=== PATIENT | male | born 1960 | race Caucasian/White ===

== ENCOUNTER 2016-03-25 06:27 | Inpatient (IN) | payer OTHER ==
[2016-03-25 06:55] VITALS: BMI 35.4
[2016-03-25] MEDS ORDERED: LABETALOL 20 MG/4 ML SYRINGE IV STA (06:56)
[2016-03-25] MEDS ORDERED: MORPHINE 4 MG/ML INJECTION IV ONE ×3 (06:56→11:43)
[2016-03-25] MEDS ORDERED: NS 1,000 ML IV ONE ×2 (06:56→09:14)
[2016-03-25] MEDS ORDERED: PROMETHAZINE 25 MG/ML VIAL IV STA (06:56)
[2016-03-25] MEDS ORDERED: SODIUM CHLORIDE 0.9% 3 ML FLUSH FLUSH PRN (06:56)
--- NOTE | 2016-03-25 06:59 | EDPRACDOC ---
[id number] Time Seen by Provider: 03/25/16 06:50 Information Source: Patient, Family Mode Of Arrival: Car Home Medications: Home Medications Cabozantinib S-Malate [Cabometyx] 20 mg PO DAILY 03/25/16 Cholecalciferol (Vitamin D3) [Vitamin D3] 5,000 unit PO TID 03/25/16 Cyclobenzaprine HCl [Flexeril] 10 mg PO TID PRN 03/25/16 Ferrous Sulfate [Feosol] 325 mg PO TID 03/25/16 Furosemide [Lasix] 20 mg PO DAILY 03/25/16 Gabapentin [Neurontin] 600 mg PO TID 03/25/16 Insulin Regular, Human [Novolin R] 0 unit SQ .SSI 03/25/16 Irbesartan [Avapro] 150 mg PO DAILY 03/25/16 Levothyroxine Sodium [Synthroid] 175 mcg PO DAILY 03/25/16 Lorazepam [Ativan] 2 mg PO HS 03/25/16 Magnesium Oxide [Magox] 400 mg PO BID 03/25/16 Morphine Sulfate [Ms Contin] 15 mg PO TID PRN 03/25/16 Mv,Minerals/FA/Lycopene/Ginkgo [One Daily For Men 50+ Adv Tab] 1 each PO DAILY 03/25/16 NPH, Human Insulin Isophane [Novolin N] 50 unit SQ BID 03/25/16 Omeprazole [Prilosec] 20 mg PO DAILY 03/25/16 Ondansetron [Zofran Odt] 4 mg PO Q6H PRN 03/25/16 Oxycodone HCl [Oxycodone Immediate Release] 10 mg PO Q6H PRN 03/25/16 Quetiapine Fumarate [Seroquel] 25 mg PO HS 03/25/16 Ranitidine HCl [Zantac] 150 mg PO BID 03/25/16 Ropinirole HCl [Requip] 1 mg PO QID 03/25/16 Testosterone Cypionate [Testone Cik] 300 mg IM .[id number] 03/25/16 Zolpidem Tartrate [Ambien Cr] 6.25 mg PO HS 03/25/16 Allergies/Adverse Reactions: Allergies Allergy/AdvReac Type Severity Reaction Status Date / Time hydromorphone [From Dilaudid] Allergy See Verified 03/25/16 06:56 Comments Penicillins Allergy Rash-Genera Verified 03/25/16 06:56 lized shrimp Allergy Hives* Verified 03/25/16 06:56 - History of Present Illness Onset: 2100 HPI: PT PRESENTS WITH NAUSEA, VOMITING, AND DIARRHEA THAT BEGAN LAST NIGHT. HE HAS AN ACCOMPANYING HEADACHE AND ELEVATED BLOOD PRESSURE. AT BEDSIDE SAYS THAT ANYTIME HE IS VOMITING HIS BLOOD PRESSURE ELEVATES MARKEDLY. Duration: Reports: Continuous Pain Severity: None Associated Signs and Symptoms: Reports: Nausea, Vomiting, Diarrhea. 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 (Medication/ Zofran ODT 8mg at 0530 Dose/Time) ED Past Medical History - History Reviewed Yes Nurses notes reviewed and agree except as marked - Patient Medical History Cardiac History: Reports: Hypertension GI/ History: Reports: Gastroesophageal Reflux Psychological History: Denies: Depression Systemic History: Reports: Cancer (primary kidney with mets to liver, pancreas, lung, bone) - Social Medical History Smoking Status: Never smoker Lives With: Spouse Lives In: Home EDM Review of Systems - Review of Systems ROS Negative Except as Marked: Yes All systems reviewed and were negative except as marked Constitutional: Fatigue. negative: Fever Respiratory: negative: Shortness of Breath Cardiovascular: negative: Chest Pain Gastrointestinal: Diarrhea, Nausea, Pain, Vomiting. negative: Constipation Genitourinary: negative: Dysuria - Physical Exam Constitutional: Alert Oriented to: Time, Person, Place Last recorded Vital Signs: Last Vital Signs Temp 97.9 F 03/25/16 06:45 Pulse 85 03/25/16 06:45 Resp 24 03/25/16 06:45 BP 226/109 H 03/25/16 06:45 Pulse Ox 96 03/25/16 06:45 Oxygen Pulse Oxygen Saturation 96 O2 Device Room Air Oxygen Flow Rate Fraction of Inspired Oxygen ( FIO2) - HEENT Head: negative: Deformity, Laceration Eye Exam: negative: Edema Oropharynx: Membranes Dry (TACKY) Nose: negative: Congestion, Discharge Neck: negative: Limited ROM - Respiratory/Cardiovascular Respiratory: Normal - CTA. negative: Accessory Muscle Use, Diminished, Tachypnea Cardiovascular: negative: Bradycardia, Tachycardia, Irregular - GI Auscultation: Normal Palpation: Normal Tenderness: Non tender - Musculoskeletal Extremities: Radial Pulse (PALPABLE) - Integumentary Skin: Warm, Dry. negative: Rash - Neurologic Memory Impaired: Normal Motor Function: Normal Mood Description: Anxious, Appropriate Thought: Coherent Perception: Normal - Re-evaluation Re-evaluation 1 Re-evaluation Time: 08:24 PT FEELING BETTER. ASLEEP ON RECHECK. - Results 03/25/16 07:05 03/25/16 07:05 - EKG EKG #1 EKG Time: 07:18 -: Yes EKG interpreted by me Rate: bpm: 87 [place]: LAD Rhythm: NSR Block: RBBB, IVCD ST: Nonsp ED Critical Care Note - Critical Care Note Total Time (mins): 20 Comments: Due to the presence of and / or the risk of deterioration, my attendance to this patient required critical care time, including assessment/reassessment, documentation, ordering and interpreting ancillary studies, discussion with ED staff and consultants,patient and family, and excludes time spent on separately billable procedures. - Departure Yes I personally saw and evaluated the patient. Disposition: Admit IP To This Hospital Condition: Critical Final Diagnosis: Nausea and vomiting, Hypertensive emergency, NSTEMI (non-ST elevated myocardial infarction) Decision to Admit Time: 11:30 Decision to admit date: 03/26/16 Decision to admit: from ED
[2016-03-25 07:41] LABS: MPV 7.8 fL (7.4-10.4)
[2016-03-25 07:42] LABS: BLOOD UREA NITROGEN 24 MG/DL (9-20); CALCIUM 10.2 MG/DL (8.4-10.2); CALCULATED OSMOLALITY 282 MOs/Kg (270-290); CHLORIDE 99 mEq/L (98-107); GLUCOSE 216 MG/DL (70-99); SODIUM LEVEL 141 mEq/L (137-146); TOTAL PROTEIN 7.3 G/DL (6.3-8.2)
[2016-03-25 07:46] LABS: PARTIAL THROMB. TIME 25.7 SEC (22-35)
[2016-03-25 08:03] LABS: SEG NEUTROPHIL 72 % (45-76); TOTAL CELL COUNT 100
[2016-03-25] MEDS ORDERED: hydrALAZINE 20 MG/ML VIAL IV ONE (08:53)
[2016-03-25 09:00] LABS: LEUKOCYTES/URINE NEG (NEGATIVE); NITRITE/URINE NEG (NEGATIVE); RBC/URINE 0-2 (0-2); URINE OCCULT BLOOD NEG (NEG/TRACE); WBC/URINE 0-2 (0-2)
[2016-03-25] MEDS ORDERED: Nitroglycerin D5W 50,000 MCG/250 ML IVBOT IV SCH (10:52)
--- NOTE | 2016-03-25 11:03 | DIRPT ---
CLINICAL DATA: Headache. Hypertension. Nausea and vomiting for 1 day. History of left renal cancer with metastatic disease, ongoing therapy. EXAM: CT HEAD WITHOUT CONTRAST TECHNIQUE: Contiguous axial images were obtained from the base of the skull through the vertex without intravenous contrast. COMPARISON: None. FINDINGS: The brainstem, cerebellum, cerebral peduncles, thalami, basal ganglia, basilar cisterns, and ventricular system appear within normal limits. No intracranial hemorrhage, mass lesion, or acute CVA. No discrete calvarial metastatic lesion is identified. IMPRESSION: 1. No significant abnormality is identified to explain the patient's symptoms. Electronically Signed By: Kit Akbar M.D. On: 03/25/2016 11:01
[2016-03-25] MEDS ORDERED: ONDANSETRON HCL 4 MG/2 ML VIAL IV STA (11:43)
--- NOTE | 2016-03-25 11:48 | HISTPHYS ---
- Chief Complaint Nausea vomiting starting 9:00 p.m. last night 1st was yellow then became brown and complains of a severe headache denies any chest pain or tightness. - History of Present Illness Patient is obese white 55-year-old male who has a history of metastatic left renal cancer which was removed June 2010 and has been receiving chemotherapy and radiation at both [facility] and [place] over the ensuing year. The 1st site of metastasis was his ribs which were irradiated in addition to multiple oral chemotherapeutic agents used with good results subsequently. His primary care provider is Dr. Pineda in [place] and his oncologist is Dr. Kyrie Turcios at [facility]. Anyway came in here complaining of mostly nausea vomiting with markedly elevated blood pressure which is states goes up whenever he is having issues with gastroenteritis. He specifically denied any chest pain and the 1st troponin was negative however 2nd 1 started rising to 0.43 and the 3rd 1 was up to 0.85. The initial EKG showed questionable ST elevation in V2 but the 2nd EKG done with the 3rd elevation in troponin showed more noticeable ST-elevation anteriorly and laterally. I consulted Dr. Patrick upon noticing the trend on troponins even though he had no chest discomfort. An urgent transfer was made to [facility] for cardiac catheterization this afternoon. - Medical History Cardiac History: Reports: Coronary Artery Disease (Not previously known but has had acute myocardial infarction now), Hypertension GI/ History: Reports: Gastroesophageal Reflux Systemic History: Reports: Cancer (primary kidney with mets to liver, pancreas, lung, bone) Psychological History: Denies: Depression - Surgical History Reports: Other (Left nephrectomy for renal cell cancer at [facility] June 2010) - Medictions/Allergies Allergies hydromorphone [From Dilaudid] Allergy (Verified 03/25/16 06:56) See Comments vomiting Penicillins Allergy (Verified 03/25/16 06:56) Rash-Generalized shrimp Allergy (Verified 03/25/16 06:56) Hives* Current Medication List: Reviewed Home Medications Cabozantinib S-Malate [Cabometyx] 20 mg PO DAILY 03/25/16 Cholecalciferol (Vitamin D3) [Vitamin D3] 5,000 unit PO TID 03/25/16 Cyclobenzaprine HCl [Flexeril] 10 mg PO TID PRN 03/25/16 Ferrous Sulfate [Feosol] 325 mg PO TID 03/25/16 Furosemide [Lasix] 20 mg PO DAILY 03/25/16 Gabapentin [Neurontin] 600 mg PO TID 03/25/16 Insulin Regular, Human [Novolin R] 0 unit SQ .SSI 03/25/16 Irbesartan [Avapro] 150 mg PO DAILY 03/25/16 Levothyroxine Sodium [Synthroid] 175 mcg PO DAILY 03/25/16 Lorazepam [Ativan] 2 mg PO HS 03/25/16 Magnesium Oxide [Magox] 400 mg PO BID 03/25/16 Morphine Sulfate [Ms Contin] 15 mg PO TID PRN 03/25/16 Mv,Minerals/FA/Lycopene/Ginkgo [One Daily For Men 50+ Adv Tab] 1 each PO DAILY 03/25/16 NPH, Human Insulin Isophane [Novolin N] 50 unit SQ BID 03/25/16 Omeprazole [Prilosec] 20 mg PO DAILY 03/25/16 Ondansetron [Zofran Odt] 4 mg PO Q6H PRN 03/25/16 Oxycodone HCl [Oxycodone Immediate Release] 10 mg PO Q6H PRN 03/25/16 Quetiapine Fumarate [Seroquel] 25 mg PO HS 03/25/16 Ranitidine HCl [Zantac] 150 mg PO BID 03/25/16 Ropinirole HCl [Requip] 1 mg PO QID 03/25/16 Testosterone Cypionate [Testone Cik] 300 mg IM .[id number] 03/25/16 Zolpidem Tartrate [Ambien Cr] 6.25 mg PO HS 03/25/16 - Family History Reports: Hypertension - Social History Travel Outside of [place] in the Last 3 Months?: No Lives: with Spouse Smoking Status: Never smoker Social History: Denies: Alcohol Use, Substance Use Disorder 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 - Review of Systems Constitutional: No Symptoms Reported (No Fever, chills, wt loss/gain, diaphoresis,fatigue/malaise.), Fatigue Eyes: No Symptoms Reported (No blurry vision, visual changes, eye pain, or eye redness.), Blurred Vision, Photophobia Ears: No Symptoms Reported (No ear pain or discharge) Nose: No Symptoms Reported (No nasal discharge/congestion or bleeding) Mouth: No Symptoms Reported (No oropharyngeal lesions or erythema) Throat/Neck: No Symptoms Reported (No throat pain or swelling.No oropharyngeal lesions or erythema.) Respiratory: No Symptoms Reported (No cough, wheezing, or shortness of breath.) Cardiovascular: No Symptoms Reported (No chest pain or palpitations.) Gastrointestinal: Nausea, Vomiting, Diarrhea Genitourinary: No Symptoms Reported (No dysuria or hematuria.) Neurological: No Symptoms Reported (No headache, dizziness, seizures, or focal weakness.) Musculoskeletal:: No Symptoms Reported Integumentary: No Symptoms Reported (no rashes or lesions) Allergic/Immunologic: No Symptoms Reported (no rashes or lesions) Hematologic: No Symptoms Reported (No chronic anemia, bleeding, or easy bruising.), Other (Lymphatics- no lymph node swelling or pain.) Endocrine: Diabetes, Hypothyroidism, Other (Hypogonadism) Psychiatric: No Symptoms Reported (Fully oriented, with normal and appropriate affect.) - Physical Exam Vital Signs: Initial Vitals Temperature 97.9 F 03/25/16 06:45 Pulse Rate 85 03/25/16 06:45 Respiratory Rate 24 03/25/16 06:45 Blood Pressure 226/109 H 03/25/16 06:45 Pulse Oxygen Saturation 96 03/25/16 06:45 Constitutional: Alert (Awake, Fully oriented. Normal and appropriate affect.Well appearing. Well nourished.), No apparent distress Oriented to: Time, Person, Place - HEENT Head: Normal (normocephalic, atraumatic.), Other (No cervical lymphadenopathy. No supraclavicular lymphadenopathy. Neck: No palpable mass, supple , trachea midline.) Eye: Normal (pupils equal, reactive to light, and round; EOMI, Sclera white) Oropharynx: Normal (Pharynx: Moist without exudate,Gums-no swelling, No oropharyngeal lesions or erythema, Mucous membranes are dry.) ENT EAC: Normal (No oropharyngeal lesions or erythema. Mucous membranes are dry. ) TMJ: Normal Nose: No Symptoms Reported (septum midline, Nares patent, without discharge or bleeding.) Respiratory: Normal - CTA (Clear to auscultation bilaterally. No wheezing, rales , rhonchi. Chest wall movements are symmetric. No use of accessory muscles to breathe.) Cardiovascular: Normal (RRR , Normal S1, S2. No murmurs, rubs, or gallops. PMI non-displaced. Carotids: no carotid bruits. No bradycardia or tachycardia. DP pulses 2+ bilaterally.) - GI Auscultation: Normal (normal active sounds) Palpation: Normal (Soft,non distended,nontender. No hepatosplenomegaly.) Tenderness: Non tender (No rebound or guarding) Morrissey's Sign: Negative - Focused CV Perfusion Exam Vital Signs: Last Vital Signs Temp 97.9 F 03/25/16 06:45 Pulse 72 03/25/16 10:57 Resp 20 03/25/16 10:57 BP 227/100 H 03/25/16 10:57 Pulse Ox 95 03/25/16 10:57 - Lab Results 03/25/16 07:05 03/25/16 07:05 Laboratory Results - last 24 hr 03/25/16 03/25/16 03/25/16 07:05 07:05 07:05 WBC 12.3 H RBC 6.12 H Hgb 15.9 Hct 48.0 MCV 78 L MCH 25.9 L MCHC 33.1 RDW 26.9 H Plt Count 266 MPV 7.8 Neut % (Auto) Cancelled Lymph % (Auto) Cancelled [place] % (Auto) Cancelled Eos % (Auto) Cancelled Baso % (Auto) Cancelled Absolute Neuts (auto) Cancelled Absolute Lymphs (auto) Cancelled Seg Neuts % (Manual) 72 Band Neutrophils % 8 H Lymphocytes % (Manual) 14 L Monocytes % (Manual) 5 Basophils % (Manual) 1 Absolute Neutrophils 9.84 H Absolute Lymphocytes 1.72 Nucl RBC Rel Cnt (Man) 1 Vacuolated Neuts 1+ Atypical Lymphocytes Few Toxic Granulation Tr Platelet Estimate Norm RBC Morphology 1+ ellipto PT INR APTT Sodium 141 Potassium 4.6 Chloride 99 Carbon Dioxide 24 Anion Gap 23 H BUN 24 H Creatinine 1.70 H Estimated GFR (MDRD) 42 L Glucose 216 H Calculated Osmolality 282 Calcium 10.2 Total Bilirubin 1.1 AST 47 ALT 54 Alkaline Phosphatase 106 Troponin I 0.16 Total Protein 7.3 Albumin 4.5 Urine Color Urine Clarity Urine pH Ur Specific [place] Urine Protein Urine Glucose (UA) Urine Ketones Urine Occult Blood Urine Nitrite Urine Bilirubin Urine Urobilinogen Ur Leukocyte Esterase Urine RBC Urine WBC Urine Mucus 03/25/16 03/25/16 03/25/16 07:05 08:46 10:07 WBC RBC Hgb Hct MCV MCH MCHC RDW Plt Count MPV Neut % (Auto) Lymph % (Auto) [place] % (Auto) Eos % (Auto) Baso % (Auto) Absolute Neuts (auto) Absolute Lymphs (auto) Seg Neuts % (Manual) Band Neutrophils % Lymphocytes % (Manual) Monocytes % (Manual) Basophils % (Manual) Absolute Neutrophils Absolute Lymphocytes Nucl RBC Rel Cnt (Man) Vacuolated Neuts Atypical Lymphocytes Toxic Granulation Platelet Estimate RBC Morphology PT 10.6 INR 1.0 APTT 25.7 Sodium Potassium Chloride Carbon Dioxide Anion Gap BUN Creatinine Estimated GFR (MDRD) Glucose Calculated Osmolality Calcium Total Bilirubin AST ALT Alkaline Phosphatase Troponin I 0.43 H* Total Protein Albumin Urine Color Yellow Urine Clarity Clear Urine pH 6.0 Ur Specific [place] 1.010 Urine Protein 3+ H Urine Glucose (UA) 2+ Urine Ketones 1+ H Urine Occult Blood Neg Urine Nitrite Neg Urine Bilirubin Neg Urine Urobilinogen <2.0 Ur Leukocyte Esterase Neg Urine RBC 0-2 Urine WBC 0-2 Urine Mucus Occ - Diagnostic Findings Ct head: FINDINGS: The brainstem, cerebellum, cerebral peduncles, thalami, basal ganglia, basilar cisterns, and ventricular system appear within normal limits. No intracranial hemorrhage, mass lesion, or acute CVA. No discrete calvarial metastatic lesion is identified. IMPRESSION: 1. No significant abnormality is identified to explain the patient's symptoms. - Assessment (1) STEMI (ST elevation myocardial infarction) I21.3 - ST ELEVATION (STEMI) MYOCARDIAL INFARCTION OF [facility] SITE Acute Present on Admission: Yes Qualifiers: Involved coronary artery: LAD coronary artery Qualified Code(s): I21.02 - ST elevation (STEMI) myocardial infarction involving left anterior descending coronary artery Acute anterior wall ST-elevation myocardial infarction that is being transferred to [facility] for urgent cardiac catheterization. IV heparin ordered beta-blockade and appreciate input Dr. Patrick arranging for transfer. (2) Hypertensive emergency I16.1 - HYPERTENSIVE EMERGENCY Acute Present on Admission: Yes Antihypertensive therapy ordered urgently can also help with acute NE. (3) Nausea and vomiting R11.2 - NAUSEA WITH VOMITING, UNSPECIFIED Acute Present on Admission: Yes Antiemetics are ordered and this could be a manifestation of the acute myocardial infarction. 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 (5) Hypothyroidism E03.9 - HYPOTHYROIDISM, UNSPECIFIED Chronic Present on Admission: Yes Qualifiers: Hypothyroidism type: acquired Qualified Code(s): E03.9 - Hypothyroidism, unspecified Synthroid replacement. (6) Renal cancer Chronic Present on Admission: Yes Qualifiers: Laterality: left Qualified Code(s): C64.2 - Malignant neoplasm of left kidney, except renal pelvis Status post left nephrectomy with evidence of metastatic renal cell cancer to rib getting chemotherapy status post radiation treatment. (7) Renal insufficiency N28.9 - DISORDER OF KIDNEY AND URETER, UNSPECIFIED Acute Present on Admission: Yes Will have to careful with his angiogram using contrast. Creatinine is 1.7. (8) Hypogonadism Acute Present on Admission: Yes Continue testosterone supplementation. - Plan Due to the presence of and / or the risk of deterioration, my attendance to this patient required critical care time, including assessment/reassessment, documentation, ordering and interpreting ancillary studies, discussion with staff and consultants,patient and family, and excludes time spent on separately billable procedures. This individual is critically ill and in danger of dying. Case Care Discussed with: Patient, Consultants, Family, Nursing Staff Total Time: Critical care time spent 1 hour 32 minutes Critical Care: Yes Code: 291 (292)
[2016-03-25] MEDS ORDERED: ACETAMINOPHEN 325 MG/TAB TABLET PO PRN (11:49)
[2016-03-25] MEDS ORDERED: BENZONATATE 100 MG PERLES PO PRN (11:49)
[2016-03-25] MEDS ORDERED: ONDANSETRON HCL 4 MG/2 ML VIAL IV PRN (11:49)
[2016-03-25] MEDS ORDERED: PROMETHAZINE 25 MG/ML VIAL IV PRN (11:49)
[2016-03-25] MEDS ORDERED: ALBUTEROL 0.083% 3 ML NEB NEB PRN (11:49)
[2016-03-25] MEDS ORDERED: SENNA CONCENTRATE TAB PO PRN (11:49)
[2016-03-25] MEDS ORDERED: GLUCOSE (ORAL GEL) 15 GM TUBE PO PRN (11:49)
[2016-03-25] MEDS ORDERED: TUSSIONEX 5 ML ORAL SYRINGE PO PRN (11:49)
[2016-03-25] MEDS ORDERED: ACETAMINOPHEN 325 MG SUPP PR PRN (11:49)
[2016-03-25] MEDS ORDERED: DEXTROSE 25 GM/50 ML PFS IV PRN (11:49)
[2016-03-25] MEDS ORDERED: GLUCAGON 1 MG VIAL SQ PRN (11:49)
[2016-03-25] MEDS ORDERED: NITROGLYCERINE 0.4 MG TAB SL PRN (11:49)
[2016-03-25] MEDS ORDERED: OXYCODONE HCL 5 MG TABLET PO PRN (11:49)
[2016-03-25] MEDS ORDERED: BISACODYL 10 MG SUPP PR PRN (11:49)
[2016-03-25] MEDS ORDERED: CYCLOBENZAPRINE 10 MG TAB PO PRN (11:54)
[2016-03-25] MEDS ORDERED: Non-Formulary Medication ITEM (Oxycodone Hcl [Oxycodone Immediate Release] 10 MG) PO PRN (11:54)
[2016-03-25] MEDS ORDERED: MORPHINE 15 MG EXT REL TAB PO PRN (11:54)
[2016-03-25] MEDS ORDERED: ROPINIROLE 1 MG TAB PO SCH (12:00)
[2016-03-25] MEDS ORDERED: Non-Formulary Medication ITEM (Omeprazole 20 MG) PO SCH (12:00)
[2016-03-25] MEDS ORDERED: Enoxaparin 1 mg per kg per dose SQ SCH (12:00)
[2016-03-25] MEDS ORDERED: NITROGLYCERINE 2 % OINTMENT PACK TOP SCH (12:00)
[2016-03-25] MEDS ORDERED: Pharmacy Order Set Alert SCH (12:00)
[2016-03-25] MEDS ORDERED: ENOXAPARIN SODIUM SQ SCH ×2 (12:00)
[2016-03-25] MEDS ORDERED: NS 1,000 ML IV SCH (12:00)
[2016-03-25] MEDS ORDERED: ZOLPIDEM TARTRATE 5 MG TAB PO PRN (12:17)
[2016-03-25] MEDS ORDERED: ASPIRIN (CHEWABLE) 81 MG TAB PO SCH (13:00)
[2016-03-25] MEDS ORDERED: NPH INSULIN 100 UNITS/ML PEN SQ SCH ×2 (13:00→21:00)
[2016-03-25] MEDS ORDERED: IRBESARTAN 150 MG TAB PO SCH (13:00)
[2016-03-25] MEDS ORDERED: LEVOTHYROXINE 100 MCG, LEVOTHYROXINE 75 MCG PO SCH ×2 (13:00)
[2016-03-25] MEDS ORDERED: FUROSEMIDE 20 MG TAB PO SCH (13:00)
[2016-03-25] MEDS ORDERED: PANTOPRAZOLE 40 MG TAB PO SCH (13:00)
[2016-03-25] MEDS ORDERED: hydrALAZINE 20 MG/ML VIAL IV PRN (13:48)
[2016-03-25] MEDS ORDERED: CARVEDILOL 6.25 MG TAB PO SCH (14:00)
[2016-03-25] MEDS ORDERED: Non-Formulary Medication ITEM (Ferrous Sulfate [Feosol] 325 MG) PO SCH (14:00)
[2016-03-25] MEDS ORDERED: Non-Formulary Medication ITEM (Gabapentin [Neurontin] 600 MG) PO SCH (14:00)
[2016-03-25] MEDS ORDERED: GABAPENTIN 300 MG CAP PO SCH (14:00)
[2016-03-25] MEDS ORDERED: AMLODIPINE 10 MG TAB PO SCH (14:00)
[2016-03-25] MEDS ORDERED: Non-Formulary Medication ITEM (Cholecalciferol (Vitamin D3) [Vitamin D3] 5,000 UNIT) PO SCH (14:00)
[2016-03-25] MEDS ORDERED: Albuterol/Ipratropium Neb 3 ML NEB NEB SCH (14:00)
[2016-03-25] MEDS ORDERED: MORPHINE 2 MG/ML INJECTION IV PRN (14:02)
[2016-03-25] MEDS ORDERED: METOPROLOL 5 MG/5 ML SDV IV ONE ×2 (14:53→15:02)
[2016-03-25] MEDS ORDERED: HEPARIN 5000 UNITS/ML VIAL IV ONE (14:59)
[2016-03-25] MEDS ORDERED: NITROGLYCERINE TOP SCH (15:00)
[2016-03-25] MEDS ORDERED: Vaccine Screening Complete SCH ×2 (15:00→16:00)
[2016-03-25] MEDS ORDERED: ATORVASTATIN 80 MG TAB PO ONE (15:01)
--- NOTE | 2016-03-25 15:07 | PCM.CARDCO ---
Consultation Date: 03/25/16 Requesting Physician: Rupert Courtney Vocal Performer: Stan Patrick Consult Reason: Acute [place] - History of Present Illness Patient is a 55 years old gentleman with history of renal cancer he did have nephrectomy done 6 years ago. However about 2 years ago he end up having reactivation of the problem with some metastasis to the bone. However he received chemotherapy and radiation therapy in improved quite significantly. He presented to the hospital with chief complain nausea and vomiting that started about 9:00 p.m. yesterday. He was complaining also of having significant headache while he came to the emergency room he was fine to have blood pressure very elevated at 2 20/120. Appropriate medications were given blood pressure decreased and he was admitted to the hospital. His 1st troponin I was abnormal. My evaluation was called after 3rd troponin became abnormal. When I spoke to the gentleman he was asymptomatic however he receive morphine as well as Phenergan. He was falling asleep during my interview. There was significant other present in the room and she was very knowledgeable about his problems. In the matter of fact she had access to his records from [facility] and she was able to show me his echocardiogram done on February 05 of last year. At that time his left ventricle ejection fraction was normal with no segmental wall motion abnormalities. I repeated the electrocardiogram on him and electrocardiogram showed diffuse ST segment elevation in V2 1 practically to V5. At that point of time I had a discussion with the patient as well as with his significant other we decided to proceed very quickly to cardiac catheterization laboratory for cardiac catheterization. He will be given heparin, aspirin beta-cb as well as statin. I spoke to [place] interventional team. The wear and awaiting for him. - Past Medical and Surgical History Cardiac History: Reports: Hypertension GI/ History: Reports: Renal Failure, Gastroesophageal Reflux Systemic History: Reports: Cancer (primary kidney with mets to liver, pancreas, lung, bone), Hypothyroidism Psychological History: Denies: Depression, Anxiety, Bipolar Disorder Past Surgical History: Denies: Tonsillectomy/Adnoidectomy Allergies hydromorphone [From Dilaudid] Allergy (Verified 03/25/16 06:56) See Comments vomiting Penicillins Allergy (Verified 03/25/16 06:56) Rash-Generalized shrimp Allergy (Verified 03/25/16 06:56) Hives* Home Medications Cabozantinib S-Malate [Cabometyx] 20 mg PO DAILY 03/25/16 Cholecalciferol (Vitamin D3) [Vitamin D3] 5,000 unit PO TID 03/25/16 Cyclobenzaprine HCl [Flexeril] 10 mg PO TID PRN 03/25/16 Ferrous Sulfate [Feosol] 325 mg PO TID 03/25/16 Furosemide [Lasix] 20 mg PO DAILY 03/25/16 Gabapentin [Neurontin] 600 mg PO TID 03/25/16 Insulin Regular, Human [Novolin R] 0 unit SQ .SSI 03/25/16 Irbesartan [Avapro] 150 mg PO DAILY 03/25/16 Levothyroxine Sodium [Synthroid] 175 mcg PO DAILY 03/25/16 Lorazepam [Ativan] 2 mg PO HS 03/25/16 Magnesium Oxide [Magox] 400 mg PO BID 03/25/16 Morphine Sulfate [Ms Contin] 15 mg PO TID PRN 03/25/16 Mv,Minerals/FA/Lycopene/Ginkgo [One Daily For Men 50+ Adv Tab] 1 each PO DAILY 03/25/16 NPH, Human Insulin Isophane [Novolin N] 50 unit SQ BID 03/25/16 Omeprazole [Prilosec] 20 mg PO DAILY 03/25/16 Ondansetron [Zofran Odt] 4 mg PO Q6H PRN 03/25/16 Oxycodone HCl [Oxycodone Immediate Release] 10 mg PO Q6H PRN 03/25/16 Quetiapine Fumarate [Seroquel] 25 mg PO HS 03/25/16 Ranitidine HCl [Zantac] 150 mg PO BID 03/25/16 Ropinirole HCl [Requip] 1 mg PO QID 03/25/16 Testosterone Cypionate [Testone Cik] 300 mg IM .[id number] 03/25/16 Zolpidem Tartrate [Ambien Cr] 6.25 mg PO HS 03/25/16 - Social History Travel Outside of [place] in the Last 3 Months?: No Smoking Status: Former smoker - Family History Reports: Cancer (father-lung CA) - Review of Systems Constitutional: Fatigue. negative: Fever - Physical Exam Constitutional: Alert Oriented to: Time, Person, Place Exam: Last Vital Signs Temp 97.9 F 03/25/16 06:45 Pulse 96 03/25/16 14:55 Resp 20 03/25/16 10:57 BP 199/99 H 03/25/16 14:55 Pulse Ox 95 03/25/16 10:57 - HEENT Head: negative: Deformity, Laceration Eye: negative: Edema Oropharynx: Membranes Dry (TACKY) Nose: negative: Congestion, Discharge - Respiratory/Cardiovascular Respiratory: Normal - CTA. negative: Accessory Muscle Use, Diminished, Tachypnea - GI Auscultation: Normal Palpation: Normal Tenderness: Non tender - Musculoskeletal Extremities: Radial Pulse (PALPABLE) - Integumentary Skin: Warm, Dry. negative: Rash - Neurologic Memory Impaired: Normal Mood Description: Anxious, Appropriate Thought: Coherent Perception: Normal - Other Exam Other Exam Findings: General Appearance: Well developed. Well nourished. Pale appearing Lungs: Chest was not overinflated. Clear to auscultation. Cardiovascular: Jugular Venous Distention: JVD not increased. Heart Rate And Rhythm: Normal. Heart Sounds: Normal. Murmurs: No murmurs were heard. Carotid Arteries: Carotid pulses were normal. No bruit in the carotid artery. Edema: Not present. Lower extremities pulses normal (including femoral popliteal and dorsalis pedis) . Musculoskeletal System: General/bilateral: No cyanosis of the fingers. Neurological: Oriented to time, place, and person. Nails: No clubbing of the fingernails. - Lab Results Laboratory Tests 03/25/16 03/25/16 03/25/16 07:05 07:05 07:05 WBC 12.3 H RBC 6.12 H Hgb 15.9 Hct 48.0 MCV 78 L MCH 25.9 L MCHC 33.1 RDW 26.9 H Plt Count 266 MPV 7.8 Neut % (Auto) Cancelled Lymph % (Auto) Cancelled [place] % (Auto) Cancelled Eos % (Auto) Cancelled Baso % (Auto) Cancelled Absolute Neuts (auto) Cancelled Absolute Lymphs (auto) Cancelled Seg Neuts % (Manual) 72 Band Neutrophils % 8 H Lymphocytes % (Manual) 14 L Monocytes % (Manual) 5 Basophils % (Manual) 1 Absolute Neutrophils 9.84 H Absolute Lymphocytes 1.72 Nucl RBC Rel Cnt (Man) 1 Vacuolated Neuts 1+ Atypical Lymphocytes Few Toxic Granulation Tr Platelet Estimate Norm RBC Morphology 1+ ellipto PT INR APTT Sodium 141 Potassium 4.6 Chloride 99 Carbon Dioxide 24 Anion Gap 23 H BUN 24 H Creatinine 1.70 H Estimated GFR (MDRD) 42 L Glucose 216 H Hemoglobin A1c Calculated Osmolality 282 Calcium 10.2 Total Bilirubin 1.1 AST 47 ALT 54 Alkaline Phosphatase 106 Troponin I 0.16 Total Protein 7.3 Albumin 4.5 TSH Urine Color Urine Clarity Urine pH Ur Specific [place] Urine Protein Urine Glucose (UA) Urine Ketones Urine Occult Blood Urine Nitrite Urine Bilirubin Urine Urobilinogen Ur Leukocyte Esterase Urine RBC Urine WBC Urine Mucus 03/25/16 03/25/16 03/25/16 07:05 07:05 08:46 WBC RBC Hgb Hct MCV MCH MCHC RDW Plt Count MPV Neut % (Auto) Lymph % (Auto) [place] % (Auto) Eos % (Auto) Baso % (Auto) Absolute Neuts (auto) Absolute Lymphs (auto) Seg Neuts % (Manual) Band Neutrophils % Lymphocytes % (Manual) Monocytes % (Manual) Basophils % (Manual) Absolute Neutrophils Absolute Lymphocytes Nucl RBC Rel Cnt (Man) Vacuolated Neuts Atypical Lymphocytes Toxic Granulation Platelet Estimate RBC Morphology PT 10.6 INR 1.0 APTT 25.7 Sodium Potassium Chloride Carbon Dioxide Anion Gap BUN Creatinine Estimated GFR (MDRD) Glucose Hemoglobin A1c 8.2 H Calculated Osmolality Calcium Total Bilirubin AST ALT Alkaline Phosphatase Troponin I Total Protein Albumin TSH Urine Color Yellow Urine Clarity Clear Urine pH 6.0 Ur Specific [place] 1.010 Urine Protein 3+ H Urine Glucose (UA) 2+ Urine Ketones 1+ H Urine Occult Blood Neg Urine Nitrite Neg Urine Bilirubin Neg Urine Urobilinogen <2.0 Ur Leukocyte Esterase Neg Urine RBC 0-2 Urine WBC 0-2 Urine Mucus Occ 03/25/16 03/25/16 03/25/16 10:07 10:07 12:52 WBC RBC Hgb Hct MCV MCH MCHC RDW Plt Count MPV Neut % (Auto) Lymph % (Auto) [place] % (Auto) Eos % (Auto) Baso % (Auto) Absolute Neuts (auto) Absolute Lymphs (auto) Seg Neuts % (Manual) Band Neutrophils % Lymphocytes % (Manual) Monocytes % (Manual) Basophils % (Manual) Absolute Neutrophils Absolute Lymphocytes Nucl RBC Rel Cnt (Man) Vacuolated Neuts Atypical Lymphocytes Toxic Granulation Platelet Estimate RBC Morphology PT INR APTT Sodium Potassium Chloride Carbon Dioxide Anion Gap BUN Creatinine Estimated GFR (MDRD) Glucose Hemoglobin A1c Calculated Osmolality Calcium Total Bilirubin AST ALT Alkaline Phosphatase Troponin I 0.43 H* 0.85 H* D Total Protein Albumin TSH 2.70 Urine Color Urine Clarity Urine pH Ur Specific [place] Urine Protein Urine Glucose (UA) Urine Ketones Urine Occult Blood Urine Nitrite Urine Bilirubin Urine Urobilinogen Ur Leukocyte Esterase Urine RBC Urine WBC Urine Mucus - Diagnostic Findings Electrocardiogram showed normal sinus rhythm, normal P interval. The Q-wave in anterior precordium with ST segment elevation going practically to V6. - Assessment/Plan (1) STEMI (ST elevation myocardial infarction) I21.3 - ST ELEVATION (STEMI) MYOCARDIAL INFARCTION OF [facility] S[facility] Acute I Comment: Patient's develop significant ST segment elevation practically in all anterior precordium. Stat echocardiogram done at the bedside show hypokinesis involving LAD territory. Echocardiogram done at [facility] on February 06, 2016 showed preserved normal left ventricle ejection fraction without segmental wall motion abnormalities. His biochemical markers already abnormal I think he will be best served by being transferred urgently to [facility] for cardiac catheterization. Procedure was planned the patient as well as to his significant other. Will proceed quickly. He receive heparin aspirin and nitroglycerin as well as beta-cb and statin. (2) Renal cancer Chronic Present on Admission: Yes L Comment: Status post nephrectomy and recent radiation therapy and chemotherapy secondary to meds. (3) Hypertensive emergency I16.1 - HYPERTENSIVE EMERGENCY Acute Comment: Blood pressure is much better control with all medications. (4) Nausea and vomiting R11.2 - NAUSEA WITH VOMITING, UNSPECIFIED Acute Comment: Improve with Phenergan. Plan: Gentleman with renal cancer with metastasis have a doing quite well from that standpoint of view came to hospital with some nonspecific symptoms but developed significant ST segment elevation indicating LAD myocardial infarction. In spite of his mildly elevated creatinine with GFR of 42 I think he will be best served by being transferred to [facility] for cardiac catheterization and potentially angioplasty. This plan discussed with patient as well as family.
[2016-03-25 15:22] VITALS: BP 201/95; PULSE 91; TEMP 98.8
[2016-03-25] MEDS ORDERED: REGULAR INSULIN 100 UNITS/ML - 3 ML VIAL SQ SCH (17:00)
[2016-03-25] MEDS ORDERED: FERROUS SULFATE 324 MG TAB PO SCH (17:30)
[2016-03-25] MEDS ORDERED: CHOLECALCIFEROL 1000 UNITS TAB PO SCH (17:30)
[2016-03-25] MEDS ORDERED: SODIUM CHLORIDE 0.9% 3 ML FLUSH FLUSH SCH (18:00)
[2016-03-25] MEDS ORDERED: NPH HUMAN INSULIN ISOPHANE SQ SCH (21:00)
[2016-03-25] MEDS ORDERED: QUETIAPINE FUMARATE 25 MG TAB PO SCH (21:00)
[2016-03-25] MEDS ORDERED: LORAZEPAM 2 MG PO SCH (21:00)
[2016-03-25] MEDS ORDERED: RANITIDINE 150 MG TAB PO SCH (21:00)
[2016-03-25] MEDS ORDERED: LORAZEPAM 1 MG TAB PO SCH (21:00)
[2016-03-25] MEDS ORDERED: ZOLPIDEM TARTRATE 6.25 MG PO SCH (21:00)
[2016-03-25] MEDS ORDERED: CHLORHEXIDINE (HIBICLENS) 4 OZ BOTTLE TOP SCH (21:00)
[2016-03-25] MEDS ORDERED: REMOVE NITROGLYCERIN PASTE MAR ALERT SCH (21:00)
[2016-03-26] MEDS ORDERED: CABOZANTINIB S MALATE 20 MG PO SCH (09:00)
[2016-03-26] MEDS ORDERED: LEVOTHYROXINE SODIUM 175 MCG PO SCH (09:00)
--- NOTE | 2016-03-27 10:51 | CAPUEKG ---
[place], [place] Test Date: 2016-03-25 Pat Name: STAN JAQUEZ Department: Room: ICU Gender: Male [place]: : Requested By: Order Number: Reading MD: Stan Patrick MD Measurements Intervals Luana Rate: 83 P: 70 VA: 150 QRS: -47 QRSD: 110 T: 99 QT: 356 QTc: 418 Interpretive Statements Normal sinus rhythm Left anterior fascicular block Moderate voltage criteria for LVH, may be normal variant Anteroseptal infarct, possibly acute Lateral injury pattern ACUTE CT Abnormal ECG Electronically Signed On 03-27-16 10:50:38 EST by Stan Patrick MD <[id number] [id number]
--- NOTE | 2016-03-27 13:44 | PCM.CARDCO ---
Consultation Date: 03/25/16 Requesting Physician: Rupert Courtney [employer] Analyst: Stan Patrick Consult Reason: Acute [place] - History of Present Illness Patient is a 55 years old gentleman with history of renal cancer he did have nephrectomy done 6 years ago. However about 2 years ago he end up having reactivation of the problem with some metastasis to the bone. However he received chemotherapy and radiation therapy in improved quite significantly. He presented to the hospital with chief complain nausea and vomiting that started about 9:00 p.m. yesterday. He was complaining also of having significant headache while he came to the emergency room he was fine to have blood pressure very elevated at 2 20/120. Appropriate medications were given blood pressure decreased and he was admitted to the hospital. His 1st troponin I was abnormal. My evaluation was called after 3rd troponin became abnormal. When I spoke to the gentleman he was asymptomatic however he receive morphine as well as Phenergan. He was falling asleep during my interview. There was significant other present in the room and she was very knowledgeable about his problems. In the matter of fact she had access to his records from [place] and she was able to show me his echocardiogram done on February 05 of last year. At that time his left ventricle ejection fraction was normal with no segmental wall motion abnormalities. I repeated the electrocardiogram on him and electrocardiogram showed diffuse ST segment elevation in V2 1 practically to V5. At that point of time I had a discussion with the patient as well as with his significant other we decided to proceed very quickly to cardiac catheterization laboratory for cardiac catheterization. He will be given heparin, aspirin beta-cb as well as statin. I spoke to [place] interventional team. They are aware and awaiting for him. - Past Medical and Surgical History Cardiac History: Reports: Hypertension GI/ History: Reports: Renal Failure, Gastroesophageal Reflux Systemic History: Reports: Cancer (primary kidney with mets to liver, pancreas, lung, bone), Hypothyroidism Psychological History: Denies: Depression, Anxiety, Bipolar Disorder Past Surgical History: Denies: Tonsillectomy/Adnoidectomy Allergies hydromorphone [From Dilaudid] Allergy (Verified 03/25/16 06:56) See Comments vomiting Penicillins Allergy (Verified 03/25/16 06:56) Rash-Generalized shrimp Allergy (Verified 03/25/16 06:56) Hives* Home Medications Cabozantinib S-Malate [Cabometyx] 20 mg PO DAILY 03/25/16 Cholecalciferol (Vitamin D3) [Vitamin D3] 5,000 unit PO TID 03/25/16 Cyclobenzaprine HCl [Flexeril] 10 mg PO TID PRN 03/25/16 Ferrous Sulfate [Feosol] 325 mg PO TID 03/25/16 Furosemide [Lasix] 20 mg PO DAILY 03/25/16 Gabapentin [Neurontin] 600 mg PO TID 03/25/16 Insulin Regular, Human [Novolin R] 0 unit SQ .SSI 03/25/16 Irbesartan [Avapro] 150 mg PO DAILY 03/25/16 Levothyroxine Sodium [Synthroid] 175 mcg PO DAILY 03/25/16 Lorazepam [Ativan] 2 mg PO HS 03/25/16 Magnesium Oxide [Magox] 400 mg PO BID 03/25/16 Morphine Sulfate [Ms Contin] 15 mg PO TID PRN 03/25/16 Mv,Minerals/FA/Lycopene/Ginkgo [One Daily For Men 50+ Adv Tab] 1 each PO DAILY 03/25/16 NPH, Human Insulin Isophane [Novolin N] 50 unit SQ BID 03/25/16 Omeprazole [Prilosec] 20 mg PO DAILY 03/25/16 Ondansetron [Zofran Odt] 4 mg PO Q6H PRN 03/25/16 Oxycodone HCl [Oxycodone Immediate Release] 10 mg PO Q6H PRN 03/25/16 Quetiapine Fumarate [Seroquel] 25 mg PO HS 03/25/16 Ranitidine HCl [Zantac] 150 mg PO BID 03/25/16 Ropinirole HCl [Requip] 1 mg PO QID 03/25/16 Testosterone Cypionate [Testone Cik] 300 mg IM .[id number] 03/25/16 Zolpidem Tartrate [Ambien Cr] 6.25 mg PO HS 03/25/16 - Social History Travel Outside of [place] in the Last 3 Months?: No Smoking Status: Former smoker - Family History Reports: Cancer (father-lung CA) - Review of Systems Constitutional: Fatigue. negative: Fever - Physical Exam Constitutional: Alert Oriented to: Time, Person, Place Exam: Last Vital Signs Temp 97.9 F 03/25/16 06:45 Pulse 96 03/25/16 14:55 Resp 20 03/25/16 10:57 BP 199/99 H 03/25/16 14:55 Pulse Ox 95 03/25/16 10:57 - HEENT Head: negative: Deformity, Laceration Eye: negative: Edema Oropharynx: Membranes Dry (TACKY) Nose: negative: Congestion, Discharge - Respiratory/Cardiovascular Respiratory: Normal - CTA. negative: Accessory Muscle Use, Diminished, Tachypnea - GI Auscultation: Normal Palpation: Normal Tenderness: Non tender - Musculoskeletal Extremities: Radial Pulse (PALPABLE) - Integumentary Skin: Warm, Dry. negative: Rash - Neurologic Memory Impaired: Normal Mood Description: Anxious, Appropriate Thought: Coherent Perception: Normal - Other Exam Other Exam Findings: General Appearance: Well developed. Well nourished. Pale appearing Lungs: Chest was not overinflated. Clear to auscultation. Cardiovascular: Jugular Venous Distention: JVD not increased. Heart Rate And Rhythm: Normal. Heart Sounds: Normal. Murmurs: No murmurs were heard. Carotid Arteries: Carotid pulses were normal. No bruit in the carotid artery. Edema: Not present. Lower extremities pulses normal (including femoral popliteal and dorsalis pedis) . Musculoskeletal System: General/bilateral: No cyanosis of the fingers. Neurological: Oriented to time, place, and person. Nails: No clubbing of the fingernails. - Lab Results Laboratory Tests 03/25/16 03/25/16 03/25/16 07:05 07:05 07:05 WBC 12.3 H RBC 6.12 H Hgb 15.9 Hct 48.0 MCV 78 L MCH 25.9 L MCHC 33.1 RDW 26.9 H Plt Count 266 MPV 7.8 Neut % (Auto) Cancelled Lymph % (Auto) Cancelled [place] % (Auto) Cancelled Eos % (Auto) Cancelled Baso % (Auto) Cancelled Absolute Neuts (auto) Cancelled Absolute Lymphs (auto) Cancelled Seg Neuts % (Manual) 72 Band Neutrophils % 8 H Lymphocytes % (Manual) 14 L Monocytes % (Manual) 5 Basophils % (Manual) 1 Absolute Neutrophils 9.84 H Absolute Lymphocytes 1.72 Nucl RBC Rel Cnt (Man) 1 Vacuolated Neuts 1+ Atypical Lymphocytes Few Toxic Granulation Tr Platelet Estimate Norm RBC Morphology 1+ ellipto PT INR APTT Sodium 141 Potassium 4.6 Chloride 99 Carbon Dioxide 24 Anion Gap 23 H BUN 24 H Creatinine 1.70 H Estimated GFR (MDRD) 42 L Glucose 216 H Hemoglobin A1c Calculated Osmolality 282 Calcium 10.2 Total Bilirubin 1.1 AST 47 ALT 54 Alkaline Phosphatase 106 Troponin I 0.16 Total Protein 7.3 Albumin 4.5 TSH Urine Color Urine Clarity Urine pH Ur Specific [place] Urine Protein Urine Glucose (UA) Urine Ketones Urine Occult Blood Urine Nitrite Urine Bilirubin Urine Urobilinogen Ur Leukocyte Esterase Urine RBC Urine WBC Urine Mucus 03/25/16 03/25/16 03/25/16 07:05 07:05 08:46 WBC RBC Hgb Hct MCV MCH MCHC RDW Plt Count MPV Neut % (Auto) Lymph % (Auto) [place] % (Auto) Eos % (Auto) Baso % (Auto) Absolute Neuts (auto) Absolute Lymphs (auto) Seg Neuts % (Manual) Band Neutrophils % Lymphocytes % (Manual) Monocytes % (Manual) Basophils % (Manual) Absolute Neutrophils Absolute Lymphocytes Nucl RBC Rel Cnt (Man) Vacuolated Neuts Atypical Lymphocytes Toxic Granulation Platelet Estimate RBC Morphology PT 10.6 INR 1.0 APTT 25.7 Sodium Potassium Chloride Carbon Dioxide Anion Gap BUN Creatinine Estimated GFR (MDRD) Glucose Hemoglobin A1c 8.2 H Calculated Osmolality Calcium Total Bilirubin AST ALT Alkaline Phosphatase Troponin I Total Protein Albumin TSH Urine Color Yellow Urine Clarity Clear Urine pH 6.0 Ur Specific [place] 1.010 Urine Protein 3+ H Urine Glucose (UA) 2+ Urine Ketones 1+ H Urine Occult Blood Neg Urine Nitrite Neg Urine Bilirubin Neg Urine Urobilinogen <2.0 Ur Leukocyte Esterase Neg Urine RBC 0-2 Urine WBC 0-2 Urine Mucus Occ 03/25/16 03/25/16 03/25/16 10:07 10:07 12:52 WBC RBC Hgb Hct MCV MCH MCHC RDW Plt Count MPV Neut % (Auto) Lymph % (Auto) [place] % (Auto) Eos % (Auto) Baso % (Auto) Absolute Neuts (auto) Absolute Lymphs (auto) Seg Neuts % (Manual) Band Neutrophils % Lymphocytes % (Manual) Monocytes % (Manual) Basophils % (Manual) Absolute Neutrophils Absolute Lymphocytes Nucl RBC Rel Cnt (Man) Vacuolated Neuts Atypical Lymphocytes Toxic Granulation Platelet Estimate RBC Morphology PT INR APTT Sodium Potassium Chloride Carbon Dioxide Anion Gap BUN Creatinine Estimated GFR (MDRD) Glucose Hemoglobin A1c Calculated Osmolality Calcium Total Bilirubin AST ALT Alkaline Phosphatase Troponin I 0.43 H* 0.85 H* D Total Protein Albumin TSH 2.70 Urine Color Urine Clarity Urine pH Ur Specific [place] Urine Protein Urine Glucose (UA) Urine Ketones Urine Occult Blood Urine Nitrite Urine Bilirubin Urine Urobilinogen Ur Leukocyte Esterase Urine RBC Urine WBC Urine Mucus - Diagnostic Findings Electrocardiogram showed normal sinus rhythm, normal P interval. The Q-wave in anterior precordium with ST segment elevation going practically to V6. - Assessment/Plan (1) STEMI (ST elevation myocardial infarction) I21.3 - ST ELEVATION (STEMI) MYOCARDIAL INFARCTION OF [facility] SITE Acute I Comment: Patient's develop significant ST segment elevation practically in all anterior precordium. Stat echocardiogram done at the bedside show hypokinesis involving LAD territory. Echocardiogram done at [place] on February 06, 2016 showed preserved normal left ventricle ejection fraction without segmental wall motion abnormalities. His biochemical markers already abnormal I think he will be best served by being transferred urgently to [facility] for cardiac catheterization. Procedure was planned the patient as well as to his significant other. Will proceed quickly. He receive heparin aspirin and nitroglycerin as well as beta-cb and statin. (2) Renal cancer Chronic Present on Admission: Yes L Comment: Status post nephrectomy and recent radiation therapy and chemotherapy secondary to meds. (3) Hypertensive emergency I16.1 - HYPERTENSIVE EMERGENCY Acute Comment: Blood pressure is much better control with all medications. (4) Nausea and vomiting R11.2 - NAUSEA WITH VOMITING, UNSPECIFIED Acute Comment: Improve with Phenergan. Plan: Gentleman with renal cancer with metastasis have a doing quite well from that standpoint of view came to hospital with some nonspecific symptoms but developed significant ST segment elevation indicating LAD myocardial infarction. In spite of his mildly elevated creatinine with GFR of 42 I think he will be best served by being transferred to [facility] for cardiac catheterization and potentially angioplasty. This plan discussed with patient as well as family. CC:: JOEL
--- NOTE | 2016-03-29 22:46 | PCM.DCS92 ---
- Final/Secondary Discharge Diagnosis (1) STEMI (ST elevation myocardial infarction) Acute I21.3 - ST ELEVATION (STEMI) MYOCARDIAL INFARCTION OF UNSP SITE Present on Admission: Yes LAD coronary artery I21.02 - ST elevation (STEMI) myocardial infarction involving left anterior descending coronary artery Comment: Acute anterior wall ST-elevation myocardial infarction that is being transferred to [facility] for urgent cardiac catheterization. IV heparin ordered beta-blockade and appreciate input Dr. Patrick arranging for transfer. (2) Hypertensive emergency Acute I16.1 - HYPERTENSIVE EMERGENCY Present on Admission: Yes Comment: Antihypertensive therapy ordered urgently can also help with acute AZ. (3) Nausea and vomiting Acute R11.2 - NAUSEA WITH VOMITING, UNSPECIFIED Present on Admission: Yes Comment: Antiemetics are ordered and this could be a manifestation of the acute myocardial infarction. 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 (5) Hypothyroidism Chronic E03.9 - HYPOTHYROIDISM, UNSPECIFIED Present on Admission: Yes acquired E03.9 - Hypothyroidism, unspecified Comment: Synthroid replacement. 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 (7) Renal insufficiency Acute N28.9 - DISORDER OF KIDNEY AND URETER, UNSPECIFIED Present on Admission: Yes Comment: Will have to careful with his angiogram using contrast. Creatinine is 1.7. (8) Hypogonadism Acute Present on Admission: Yes Comment: Continue testosterone supplementation. Discharge Disposition: Trans. to Other Hospital Discharge Condition: Critical Physician Follow up/Referrals: Fernie Patrick MD [Staff Physician] - Listed Time Home Medications / New Prescriptions: No Action Cabozantinib S-Malate [Cabometyx] 20 mg PO DAILY Ondansetron [Zofran Odt] 4 mg PO Q6H PRN PRN Reason: Nausea/Vomiting Ferrous Sulfate [Feosol] 325 mg PO TID Mv,Minerals/FA/Lycopene/Ginkgo [One Daily For Men 50+ Adv Tab] 1 each PO DAILY Cholecalciferol (Vitamin D3) [Vitamin D3] 5,000 unit PO TID Insulin Regular, Human [Novolin R] 0 unit SQ .SSI NPH, Human Insulin Isophane [Novolin N] 50 unit SQ BID Morphine Sulfate [Ms Contin] 15 mg PO TID PRN PRN Reason: Pain Zolpidem Tartrate [Ambien Cr] 6.25 mg PO HS Ropinirole HCl [Requip] 1 mg PO QID Quetiapine Fumarate [Seroquel] 25 mg PO HS Oxycodone HCl [Oxycodone Immediate Release] 10 mg PO Q6H PRN PRN Reason: Pain Lorazepam [Ativan] 2 mg PO HS Cyclobenzaprine HCl [Flexeril] 10 mg PO TID PRN PRN Reason: Muscle Spasms Ranitidine HCl [Zantac] 150 mg PO BID Gabapentin [Neurontin] 600 mg PO TID Omeprazole [Prilosec] 20 mg PO DAILY Irbesartan [Avapro] 150 mg PO DAILY Furosemide [Lasix] 20 mg PO DAILY Levothyroxine Sodium [Synthroid] 175 mcg PO DAILY Magnesium Oxide [Magox] 400 mg PO BID Testosterone Cypionate [Testone Cik] 300 mg IM .[id number] Discharge Home Medication List Cabozantinib S-Malate [Cabometyx] 20 mg PO DAILY 03/25/16 [History Confirmed Last Taken 03/24/16] Cholecalciferol (Vitamin D3) [Vitamin D3] 5,000 unit PO TID 03/25/16 [History Confirmed 03/25/16 Last Taken 03/24/16] Cyclobenzaprine HCl [Flexeril] 10 mg PO TID PRN 03/25/16 [History Confirmed Last Taken 03/24/16] Ferrous Sulfate [Feosol] 325 mg PO TID 03/25/16 [History Confirmed 03/25/16 Last Taken 03/24/16] Furosemide [Lasix] 20 mg PO DAILY 03/25/16 [History Confirmed 03/25/16 Last Taken 03/24/16] Gabapentin [Neurontin] 600 mg PO TID 03/25/16 [History Confirmed 03/25/16 Last Taken 03/24/16] Insulin Regular, Human [Novolin R] 0 unit SQ .SSI 03/25/16 [History Confirmed Last Taken Unknown] Irbesartan [Avapro] 150 mg PO DAILY 03/25/16 [History Confirmed 03/25/16 Last Taken 03/24/16] Levothyroxine Sodium [Synthroid] 175 mcg PO DAILY 03/25/16 [History Confirmed Last Taken 03/24/16] Lorazepam [Ativan] 2 mg PO HS 03/25/16 [History Confirmed 03/25/16 Last Taken ] Magnesium Oxide [Magox] 400 mg PO BID 03/25/16 [History Confirmed 03/25/16 Last Taken 03/24/16] Morphine Sulfate [Ms Contin] 15 mg PO TID PRN 03/25/16 [History Confirmed Last Taken 03/24/16] Mv,Minerals/FA/Lycopene/Ginkgo [One Daily For Men 50+ Adv Tab] 1 each PO DAILY 03/25/16 [History Confirmed 03/25/16 Last Taken 03/24/16] NPH, Human Insulin Isophane [Novolin N] 50 unit SQ BID 03/25/16 [History Confirmed 03/25/16 Last Taken 03/24/16] Omeprazole [Prilosec] 20 mg PO DAILY 03/25/16 [History Confirmed 03/25/16 Last Taken 03/24/16] Ondansetron [Zofran Odt] 4 mg PO Q6H PRN 03/25/16 [History Confirmed 03/25/16 Last Taken 03/25/16] Oxycodone HCl [Oxycodone Immediate Release] 10 mg PO Q6H PRN 03/25/16 [History Confirmed 03/25/16 Last Taken 03/24/16] Quetiapine Fumarate [Seroquel] 25 mg PO HS 03/25/16 [History Confirmed 03/25/16 Last Taken 03/24/16] Ranitidine HCl [Zantac] 150 mg PO BID 03/25/16 [History Confirmed 03/25/16 Last Taken 03/24/16] Ropinirole HCl [Requip] 1 mg PO QID 03/25/16 [History Confirmed 03/25/16 Last Taken 03/24/16] Testosterone Cypionate [Testone Cik] 300 mg IM .[id number] 03/25/16 [History Confirmed 03/25/16 Last Taken 03/15/16] Zolpidem Tartrate [Ambien Cr] 6.25 mg PO HS 03/25/16 [History Confirmed Last Taken 03/24/16] 03/25/16 07:05 03/25/16 07:05 O2 Device: Room Air - DC Summary Notes HPI/Notes: Patient is obese white 55-year-old male who has a history of metastatic left renal cancer which was removed June 2010 and has been receiving chemotherapy and radiation at both [facility] and [place] over the ensuing year. The 1st site of metastasis was his ribs which were irradiated in addition to multiple oral chemotherapeutic agents used with good results subsequently. His primary care provider is Dr. Pineda in [place] and his oncologist is Dr. Kyrie Turcios at [place]. Anyway came in here complaining of mostly nausea vomiting with markedly elevated blood pressure which is states goes up whenever he is having issues with gastroenteritis. He specifically denied any chest pain and the 1st troponin was negative however 2nd 1 started rising to 0.43 and the 3rd 1 was up to 0.85. The initial EKG showed questionable ST elevation in V2 but the 2nd EKG done with the 3rd elevation in troponin showed more noticeable ST-elevation anteriorly and laterally. I consulted Dr. Patrick upon noticing the trend on troponins even though he had no chest discomfort. An urgent transfer was made to [facility] for cardiac catheterization this afternoon. Dr. Patrick was consulted and his note is as follows: Patient is a 55 years old gentleman with history of renal cancer he did have nephrectomy done 6 years ago. However about 2 years ago he end up having reactivation of the problem with some metastasis to the bone. However he received chemotherapy and radiation therapy in improved quite significantly. He presented to the hospital with chief complain nausea and vomiting that started about 9:00 p.m. yesterday. He was complaining also of having significant headache while he came to the emergency room he was fine to have blood pressure very elevated at 2 20/120. Appropriate medications were given blood pressure decreased and he was admitted to the hospital. His 1st troponin I was abnormal. My evaluation was called after 3rd troponin became abnormal. When I spoke to the gentleman he was asymptomatic however he receive morphine as well as Phenergan. He was falling asleep during my interview. There was significant other present in the room and she was very knowledgeable about his problems. In the matter of fact she had access to his records from [place] and she was able to show me his echocardiogram done on February 05 of last year. At that time his left ventricle ejection fraction was normal with no segmental wall motion abnormalities. I repeated the electrocardiogram on him and electrocardiogram showed diffuse ST segment elevation in V2 1 practically to V5. At that point of time I had a discussion with the patient as well as with his significant other we decided to proceed very quickly to cardiac catheterization laboratory for cardiac catheterization. He will be given heparin, aspirin beta-cb as well as statin. I spoke to [facility] interventional team. The wear and awaiting for him. Hospital Course Note:: Discharge summary on patient named FERNIE JAQUEZ admitted to [facility] on 03/25/16 by Rupert Courtney MD. Date of discharge is same date. Patient was found to have a ST elevation AZ that warranted immediate transfer to [facility] for urgent cardiac catheterization. His peak troponin during hospitalization was 0.85. He had no chest pain but his blood pressure was markedly elevated over 200 systolicly and was placed in the intensive care unit until transfer took place. CC: Dr. Patrick Total Time: Additional critical care time of 40 minutes spent transferring patient to [facility]. Code: 292 - Physical Exam Vital Signs: Last Vital Signs Temp 98.8 F 03/25/16 13:30 Pulse 91 03/25/16 15:00 Resp 22 03/25/16 13:30 BP 201/95 H 03/25/16 15:00 Pulse Ox 96 03/25/16 15:00 Oxygen Pulse Oxygen Saturation 96 O2 Device Oxygen Flow Rate Fraction of Inspired Oxygen ( FIO2) Constitutional: Alert Oriented to: Time, Person, Place - HEENT Head: Normal. negative: Deformity, Laceration Eye: Normal. negative: Chemosis, Conjunctival Injection, Edema Oropharynx: Membranes Dry (TACKY) ENT EAC: Normal (No oropharyngeal lesions or erythema. Mucous membranes are dry. ) TMJ: Normal Nose: No Symptoms Reported. negative: Abrasion, Bleeding, Congestion, Discharge - Respiratory/Cardiovascular Respiratory: Normal - CTA. negative: Accessory Muscle Use, Diminished, Tachypnea Cardiovascular: Normal. negative: Bradycardia, Tachycardia, Irregular, Diastolic murmur, Systolic murmur - GI Auscultation: Normal (normal active sounds) Palpation: Normal (Soft,non distended,nontender. No hepatosplenomegaly.) Tenderness: Non tender (No rebound or guarding) - Musculoskeletal Back: Normal (Non-Tender) Extremities: Normal, Radial Pulse (PALPABLE) - Integumentary Skin: Warm, Dry. negative: Rash - Neurologic Memory Impaired: Normal Motor Function: Normal (Motor 5/5 throughout.Normal tone, Pulses 2+ No cyanosis or edema, FROM) Cranial Nerve: Normal (CN II-XII intact sensation, strength 5/5) Cerebellar: negative: Ataxia, Past-Pointing, Tremor Mood Description: Anxious, Appropriate Thought: Coherent Perception: Normal
== END 2016-03-25 15:34 | disposition short-term general hospital (02) | DRG 281 ==
LOC: ED 06:27 → ICU 11:56
PROVIDERS: ADMIT Internal Medicine; ATTEND Internal Medicine
DX: I21.02 ST elevation (STEMI) myocardial infarction involving left anterior descending coronary artery (principal); I16.1 Hypertensive emergency; E11.49 Type 2 diabetes mellitus with other diabetic neurological complication; C64.2 Malignant neoplasm of left kidney, except renal pelvis; E23.0 Hypopituitarism; I21.3 ST elevation (STEMI) myocardial infarction of unspecified site; N28.9 Disorder of kidney and ureter, unspecified; R11.2 Nausea with vomiting, unspecified; I25.10 Atherosclerotic heart disease of native coronary artery without angina pectoris; K21.9 Gastro-esophageal reflux disease without esophagitis; Z79.4 Long term (current) use of insulin; E03.9 Hypothyroidism, unspecified; Z79.899 Other long term (current) drug therapy; Z90.5 Acquired absence of kidney; Z87.891 Personal history of nicotine dependence
CPT/HCPCS: 36415; 70450; 80053; 81001; 83036; 84443; 84484; 85007; 85027; 85610; 85730; 87040; 87086; 87641; 93005; 96361; 96365; 96366; 96375; 96376; 99284; J0360; J1644; J1650; J2270; J2405; J2550; J3490; J7620; S5571